=== PATIENT | female | born 1965 | race Caucasian/White ===

== ENCOUNTER 2017-01-13 21:13 | Emergency (ER) | payer SELFPAY ==
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
== END 2017-01-13 23:58 | disposition home or self-care (01) ==
LOC: ER 21:13
DX: S20.219A Contusion of unspecified front wall of thorax, initial encounter (principal); S50.11XA Contusion of right forearm, initial encounter; S80.11XA Contusion of right lower leg, initial encounter; Z85.3 Personal history of malignant neoplasm of breast; Y04.8XXA Assault by other bodily force, initial encounter; Y92.009 Unspecified place in unspecified non-institutional (private) residence as the place of occurrence of the external cause

== ENCOUNTER 2017-02-04 08:06 | Emergency (ER) | payer SELFPAY ==
--- NOTE | 2017-02-22 15:51 | ER ---
ADMIT: 02/04/2017 RM/LOC: ER [facility] MR#: [id number] [id number] [address] [place] [address] Emergency Room Report SEX: F AGE: 51 : 1965 DATE: 02/04/2017 This 51-year-old female comes with several days worth of back pain. There is no traumatic injury. 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 See T-sheet for remainder of history and physical. The patient diagnosed with back pain and strain. She is given Toradol, Ultram, and Flexeril in the Emergency Department and subsequently discharged with a prescription for Toradol and Flexeril and a work note for 1 week rest. DIAGNOSIS: Back pain, strain. Maycol Richard MD/ darrel JOB #: [id number] CC: Maycol Richard MD, Attending Physician Maryann Tai MD, Family Physician
== END 2017-02-04 09:44 | disposition home or self-care (01) ==
LOC: ER 08:06
DX: S39.012A Strain of muscle, fascia and tendon of lower back, initial encounter (principal); Z79.899 Other long term (current) drug therapy; X50.1XXA Overexertion from prolonged static or awkward postures, initial encounter